=== PATIENT | male | born 1975 | race Caucasian/White ===

== ENCOUNTER 2023-07-10 03:56 | Emergency (ER) | payer OTHER, MEDICAID ==
[~2023-07-10] VITALS: Ht 172.7 cm; Wt 90.0 kg
[2023-07-10 04:00] VITALS: O2SAT 100
[2023-07-10 04:59] VITALS: TEMP 98
[2023-07-10] MEDS ORDERED: CEPHALEXIN 250MG CAPSULE PO ONE (06:00)
[2023-07-10] MEDS ORDERED: LORAZEPAM 1MG TABLET PO ONE (06:00)
[2023-07-10 07:00] VITALS: BP 117/64; PULSE 110; RESP 20
[2023-07-10] MEDS ORDERED: LORAZEPAM 1MG TABLET PO NR (07:00)
[2023-07-10] MEDS ORDERED: CEPH500C2 MT (09:38)
== END 2023-07-10 10:46 | disposition home or self-care (01) ==
LOC: ER 03:56
DX: F15.10 Other stimulant abuse, uncomplicated (principal); R51.9 Headache, unspecified
CPT/HCPCS: 99284

== ENCOUNTER 2023-11-05 07:35 | Emergency (ER) | payer OTHER, MEDICAID ==
[~2023-11-05] VITALS: Ht 172.7 cm; Wt 86.0 kg
[~2023-11-05 07:35] MED LIST: CEPH500C2 MT
[2023-11-05 07:46] VITALS: O2SAT 98
[2023-11-05 08:15] LABS: BASOPHILS % 0.2 % (0.0-2.0); EOSINOPHILS % 1.5 % (0.0-5.0); HEMATOCRIT. 44.8 % (42.0-52.0); HEMOGLOBIN. 15.2 g/dL (14.0-18.0); LYMPHOCYTES % 13.2 % (20.0-50.0); MEAN CORPUSCULAR HEMOGLOBIN 27.8 pg (28.0-32.0); MEAN CORPUSCULAR HGB CONC 33.9 g/dL (31.0-37.0); MEAN CORPUSCULAR VOLUME 81.9 fL (80.0-94.0); MEAN PLATELET VOLUME 8.6 fl (7.4-10.4); MONOCYTES % 8.2 % (2.0-8.0); NEUTROPHILS % 76.9 % (40.0-76.0); PLATELET 204 x1000/uL (130-400); RED BLOOD CELL COUNT 5.47 mill/uL (4.7-6.1); WHITE BLOOD COUNT 8.7 x1000/uL (4.5-11.0)
[2023-11-05 08:17] LABS: CHLORIDE 101 mEq/L (98-107); POTASSIUM 3.4 mEq/L (3.5-5.1); SODIUM 135 mEq/L (136-145)
[2023-11-05 08:18] LABS: CALCIUM 9.1 mg/dL (8.7-10.4); CARBON DIOXIDE 24 mEq/L (21-32)
[2023-11-05 08:23] LABS: CREATININE 0.8 mg/dL (0.6-1.3); GLUCOSE 187 mg/dL (70-105); UREA NITROGEN BLOOD 11 mg/dL (9-23)
[2023-11-05 08:25] LABS: ALANINE AMINOTRANSFERASE 59 IU/L (10-49); ALBUMIN 4.6 g/dL (3.2-4.8); ASPARTATE AMINOTRANSFERASE 64 IU/L (<34); BILIRUBIN TOTAL 0.9 mg/dL (0.1-1.0)
[2023-11-05 08:26] LABS: PROTEIN TOTAL 7.8 g/dL (6.0-8.3)
[2023-11-05 09:00] VITALS: BP 122/69; PULSE 83; RESP 17; TEMP 98.5
== END 2023-11-05 09:00 | disposition home or self-care (01) ==
LOC: ER 07:35
DX: M79.10 Myalgia, unspecified site (principal); E11.9 Type 2 diabetes mellitus without complications; E78.00 Pure hypercholesterolemia, unspecified; Z59.00 Homelessness unspecified; Z88.0 Allergy status to penicillin
CPT/HCPCS: 36415; 80053; 85025; 99283